=== PATIENT | female | born 1985 | race Caucasian/White ===

== ENCOUNTER 2016-03-29 12:31 | Emergency (ER) | payer MEDICAID ==
[2016-03-29] MEDS ORDERED: NS 1,000 ML IV ONE (13:28)
[2016-03-29] MEDS ORDERED: ACETAMINOPHEN 325 MG TAB PO ONE (13:30)
--- NOTE | 2016-03-29 13:32 | UCPHY ---
H & P Patient Type: Established Chief Complaint Nursing Narrative: COUGH AND CONGESTION STARTED YESTERDAY WITH BURNING SENSATION IN THROAT AND CHEST, INCREASED FATIGUE, FEVER HIGH OF 101F Source: Patient Exam Limitations: No limitations - Personal History LMP (Females 10-55): Now - Medical/Surgical History Hx Asthma: No Hx Chronic Respiratory Disease: No Hx Diabetes: No Hx Cardiac Disease: No Hx Renal Disease: No Hx Cirrhosis: No Hx Alcoholism: No Hx HIV/AIDS: No Hx Splenectomy or Spleen Trauma: No Other PMH: back pain - Family History Significant Family History: No pertinent family hx - Social History Smoking Status: Former smoker Time Seen by Provider: 03/29/16 12:49 HPI/ROS: CHIEF COMPLAINT: cough HISTORY OF PRESENT ILLNESS: 30-year-old female presents complaining of a cough , fever and body aches that started yesterday. Patient reports cough started as dry and today it is productive, she is coughing up yellow sputum. Patient denies sore throat, ear pain. She reports mild nasal congestion. Patient states she stopped smoking 1 month ago. She had a temperature of 101degrees yesterday. She states she feels very dehydrated and tired and is requesting IV fluids. Patient denies chest pain, shortness of breath. REVIEW OF SYSTEMS: A comprehensive 10 point review of systems is otherwise negative aside from elements mentioned in the history of present illness. (Pat Galaviz) - Physical Exam Exam: General: Alert, nontoxic. ENT: Tympanic membranes clear, external auditory canal, external ear and surrounding soft tissue including over the mastoid unremarkable. Nasopharynx is not injected, there is no rhinorrhea. Oropharynx with mild erythema, no edema. There is no exudate. No asymmetry. The uvula is midline. No elevation of tongue. There is no hoarseness. No drooling, patient has good control of their oral secretions. No trismus. No stridor. Cardiac: Regular rate and rhythm. Respiratory: Lungs clear to auscultation bilaterally. Neurological: no meningismus. Skin: No rashes. (Pat Galaviz) Constitutional: Initial Vital Signs Temperature (C) 36.6 C 03/29/16 12:40 Heart Rate 65 03/29/16 12:40 Respiratory Rate 18 03/29/16 12:40 Blood Pressure 105/42 L 03/29/16 12:40 O2 Sat (%) 98 03/29/16 12:40 O2 Delivery Mode Room Air Allergies/Adverse Reactions: diphenhydramine HCl [From Benadryl] Allergy (Verified 03/29/16 12:40) Home Medications: Medication Instructions Recorded Albuterol Sulfate [PROVENTIL HFA] 6.7 gm IH Q4-6PRN PRN #1 hfa.aer.ad 03/29/16 Benzonatate [Tessalon Pearles (RX)] 100 mg PO Q8 PRN #15 cap 03/29/16 Fluticasone Nasal [Flonase Nasal 1 sprays NASAL BID #1 mdi 03/29/16 Chadron (RX)] Medical Decision Making - Diagnostics Imaging: Chest x-ray independently reviewed by me- Impression: Mild perihilar bronchitis without a focal infiltrate, and no substantial change from March 02, 2016. Dictated By: Jian Anne MD (Pat Galaviz) ED Course/Re-evaluation: Influenza was negative, patient was given 650 mg of Tylenol p.o. she requested an IV with a liter of fluid as she states she feels very dehydrated. Chest x-ray obtained showing a mild perihilar bronchitis. Room air oxygen saturations are 98%, patient is afebrile. I have encouraged continued smoking cessation. She is discharged with a prescription for an albuterol inhaler, Flonase. She is to return for worsening symptoms. Patient is comfortable with this plan. (Pat Galaviz) Differential Diagnosis: Diagnosis considered but not limited to viral syndrome, bronchitis, pneumonia, influenza (Pat Galaviz) Other Provider: The patient was evaluated and managed by the nurse practitioner, Pat Galaviz. My co-signature indicates that I have reviewed this chart and I agree with the findings and plan of care as documented. I am the secondary supervising physician. (Meghan Shukla) - Data Points Medications Given: Discontinued Medications Acetaminophen (Tylenol) 650 mg PO EDNOW ONE Stop: 03/29/16 13:31 Last Admin: 03/29/16 13:35 Dose: 650 mg Sodium Chloride (Ns) 1,000 mls @ 0 mls/hr IV ONCE ONE PRN Reason: Wide Open Stop: 03/29/16 13:29 Last Admin: 03/29/16 13:49 Dose: 1,000 mls Departure - Departure Disposition: Home, Routine, Self-Care Clinical Impression: Viral syndrome Condition: Good Instructions: Viral Syndrome (ED) Additional Instructions: Take over the counter Tylenol and ibuprofen as instructed. Rest, drink plenty of fluids. Use a saline nasal rinse, humidifier at night, hot steam showers. Use albuterol inhaler, 2 puffs every 4-6 hours as needed for coughing. Use 1 spray of Flonase in each nostril twice daily. Return to the ED for difficulty breathing, chest pain, other concerns. Referrals: NONE *PRIMARY CARE P,. [Primary Care Provider] - As per Instructions Prescriptions: Fluticasone Nasal [Flonase Nasal Chadron (RX)] 1 sprays NASAL BID #1 mdi Albuterol Sulfate [PROVENTIL HFA] 6.7 gm IH Q4-6PRN PRN #1 hfa.aer.ad PRN Reason: Cough, Mild Benzonatate [Tessalon Pearles (RX)] 100 mg PO Q8 PRN #15 cap PRN Reason: Cough, Moderate - PQRS PQRS Measurement: chelsie (Pat Galaviz)
--- NOTE | 2016-03-29 13:51 | DX ---
Chest, PA and Lateral Upright Views March 29, 2016 at 1:35 p.m. Clinical History: 30-year-old female with a cough, fever, and generalized malaise for two days. The p atient has a prior history of tobacco use and bronchitis. Comparison Study: Chest, dated March 02, 2016. Findings: The cardiac and mediastinal silhouettes are normal in size. There is some mild central leatha hilar bronchial thickening, which is unchanged. There is no focal alveolar consolidation, pleural eff usion, peripheral interstitial edema, or pneumothorax. The trachea is midline. The osseous structures are age-appropriate. There are some minor degenerative changes of the midthoracic spine with small v entral traction spurs. Impression: Mild perihilar bronchitis without a focal infiltrate, and no substantial change from Dece mb2015.
[2016-03-29 14:33] VITALS: BP 95/65; PULSE 82; RESP 16; TEMP 98.4; O2SAT 97
== END 2016-03-29 14:33 | disposition home or self-care (01) ==
LOC: CED 12:31
DX: B34.9 Viral infection, unspecified (principal); Z87.891 Personal history of nicotine dependence
CPT/HCPCS: 71020-PO; 87400-PO; 96360-PO; 99214-PO; G0463-PO

== ENCOUNTER 2016-07-06 20:00 | Emergency (ER) | payer MEDICAID ==
[2016-07-06] MEDS ORDERED: KETOROLAC 30 MG/1 ML SDV IVP ONE (20:39)
[2016-07-06] MEDS ORDERED: NS 1,000 ML IV ONE ×2 (20:39→21:39)
[2016-07-06] MEDS ORDERED: METOCLOPRAMIDE 10 MG/2 ML VIAL IVP ONE (20:39)
[2016-07-06] MEDS ORDERED: HYDROmorphONE/DILAUDID 1 MG/ML SYR IVP ONE (20:39)
--- NOTE | 2016-07-06 20:41 | UCPHY ---
H & P Patient Type: Established Chief Complaint Nursing Narrative: Migraine since this am, nausea. Time Seen by Provider: 07/06/16 20:33 HPI/ROS: CHIEF COMPLAINT: Migraine HISTORY OF PRESENT ILLNESS: The patient is a 30-year-old female who presents to the Urgent Care complaining of a migraine. She states that it is typical of her migraines which she has fairly infrequently. She does not seen a neurologist and does not have a primary care physician. She does not typically take any medication but simply wait for them to go away. She states that over the last 1 last 3 days. She has not had any sinus congestion. No fevers. No sore throat, no neck pain. Some nausea vomiting which she states is typical. Mild photophobia. No tinnitus. She denies risk of . REVIEW OF SYSTEMS: Constitutional: denies: chills, fever, recent illness, recent injury EENTM: denies: blurred vision, double vision, nose congestion Respiratory: denies: cough, shortness of breath Cardiac: denies: chest pain, irregular heart rate, lightheadedness, palpitations Gastrointestinal/Abdominal: denies: abdominal pain, diarrhea, nausea, vomiting, blood streaked stools Genitourinary: denies: dysuria, frequency, hematuria, pain Musculoskeletal: denies: joint pain, muscle pain Skin: denies: lesions, rash, jaundice, bruising Neurological: See HPI denies: numbness, paresthesia, tingling, dizziness, weakness Hematologic/Lymphatic: denies: blood clots, easy bleeding, easy bruising Immunologic/allergic: denies: HIV/AIDS, transplant EXAM: GENERAL: Well-appearing, well-nourished and in no acute distress. HEAD: Atraumatic, normocephalic. EYES: Pupils equal round and reactive to light, extraocular movements intact, sclera anicteric, conjunctiva are normal. ENT: TMs normal, nares patent, oropharynx clear without exudates. Moist mucous membranes. NECK: Normal range of motion, supple without lymphadenopathy or JVD. LUNGS: Breath sounds clear to auscultation bilaterally and equal. No wheezes rales or rhonchi. HEART: Regular rate and rhythm without murmurs, rubs or gallops. ABDOMEN: Soft, nontender, normoactive bowel sounds. No guarding, no rebound. No masses appreciated. BACK: No CVA tenderness, no spinal tenderness, step-offs or deformities EXTREMITIES: Normal range of motion, no pitting or edema. No clubbing or cyanosis. NEUROLOGICAL: Cranial nerves II through XII grossly intact. Normal speech, normal gait. 5/5 strength, normal movement in all extremities, normal sensation PSYCH: Normal mood, normal affect. SKIN: Warm, dry, normal turgor, no visible rashes or lesions. Source: Patient Exam Limitations: No limitations - Personal History LMP (Females 10-55): 1-7 Days Ago Current Tetanus/Diphtheria Vaccine: Yes Current Tetanus Diphtheria and Acellular Pertussis (TDAP): Yes Tetanus Vaccine Date: 2011 - Medical/Surgical History Hx Asthma: No Hx Chronic Respiratory Disease: No Hx Diabetes: No Hx Cardiac Disease: No Hx Renal Disease: No Hx Cirrhosis: No Hx Alcoholism: No Hx HIV/AIDS: No Hx Splenectomy or Spleen Trauma: No Other PMH: back pain, migraines. - Family History Significant Family History: No pertinent family hx - Social History Smoking Status: Former smoker Alcohol Use: Sober Drug Use: None Constitutional: Initial Vital Signs Temperature (C) 37.3 C 07/06/16 20:09 Heart Rate 102 H 07/06/16 20:09 Respiratory Rate 18 07/06/16 20:09 Blood Pressure 97/59 L 07/06/16 20:09 O2 Sat (%) 98 07/06/16 20:09 O2 Delivery Mode Room Air Allergies/Adverse Reactions: diphenhydramine HCl [From Benadryl] Allergy (Severe, Verified 07/06/16 20:13) Other-Enter Comments Home Medications: Medication Instructions Recorded Metoclopramide [Reglan 10 mg tab 10 mg PO BID PRN #10 tab 07/06/16 (RX)] Medical Decision Making ED Course/Re-evaluation: 9:40 p.m. the patient is feeling much better. She states her headache is gone. She is sleeping. She would like to sleep a little longer. She is slightly tachycardic. I will treat her with more IV fluids and observe. 10:40 p.m. the patient is feeling completely better. 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 She is eager to go home. She declines further workup or testing at this time. We discussed indications for returning. Differential Diagnosis: Partial list of the Differential diagnosis considered include but were not limited to; migraine, tension headache, muscle strain and although unlikely based on the history and physical exam, I also considered meningitis, intracranial injury, tumor, stroke. I discussed these differential diagnoses and the plan with the patient as well as the usual and expected course. The patient understands that the diagnosis is provisional and that in medicine we are not always correct and that further workup is often warranted. Usual and customary warnings were given. All of the patient's questions were answered. The patient was instructed to return to the emergency department should the symptoms at all worsen or return, otherwise to followup with the physician as we discussed. - Data Points Medications Given: Discontinued Medications Hydromorphone HCl (Dilaudid) 0.5 mg IVP EDNOW ONE Stop: 07/06/16 20:40 Last Admin: 07/06/16 21:01 Dose: 0.5 mg Sodium Chloride (Ns) 1,000 mls @ 0 mls/hr IV ONCE ONE PRN Reason: Wide Open Stop: 07/06/16 20:40 Last Admin: 07/06/16 20:55 Dose: 1,000 mls Sodium Chloride (Ns) 1,000 mls @ 0 mls/hr IV ONCE ONE PRN Reason: Wide Open Stop: 07/06/16 21:40 Last Admin: 07/06/16 21:45 Dose: 1,000 mls Ketorolac Tromethamine (Toradol) 30 mg IVP EDNOW ONE Stop: 07/06/16 20:40 Last Admin: 07/06/16 20:58 Dose: 30 mg Metoclopramide HCl (Reglan Injection) 10 mg IVP EDNOW ONE Stop: 07/06/16 20:40 Last Admin: 07/06/16 20:56 Dose: 10 mg Departure - Departure Disposition: Home, Routine, Self-Care Clinical Impression: Migraine Qualifiers: Migraine type: without aura Status migrainosus presence: without status migrainosus Intractability: not intractable Qualified Code(s): G43.009 - Migraine without aura, not intractable, without status migrainosus Condition: Fair Instructions: Migraine Headache (ED) Referrals: NONE *PRIMARY CARE P,. [Primary Care Provider] - As per Instructions Jian Arita DO [Medical Doctor] - As per Instructions Prescriptions: Metoclopramide [Reglan 10 mg tab (RX)] 10 mg PO BID PRN #10 tab PRN Reason: Headache - PQRS PQRS Measurement: Not applicable
[2016-07-06 21:18] VITALS: RESP 16
[2016-07-06 22:15] VITALS: BP 100/41; PULSE 103; TEMP 99.7; O2SAT 95
== END 2016-07-06 22:39 | disposition home or self-care (01) ==
LOC: CED 20:00
DX: G43.909 Migraine, unspecified, not intractable, without status migrainosus (principal); Z87.891 Personal history of nicotine dependence
CPT/HCPCS: 96361-PO; 96374-PO; 96375-PO; G0463-PO; J1170; J1885; J2765

== ENCOUNTER 2016-10-24 18:51 | Emergency (ER) | payer MEDICAID ==
[2016-10-24 19:12] VITALS: TEMP 98.2
[2016-10-24] MEDS ORDERED: IBUPROFEN 600 MG TAB PO ONE ×2 (19:15→19:20)
--- NOTE | 2016-10-24 19:19 | EDPHY ---
H & P Time Seen by Provider: 10/24/16 19:01 HPI/ROS: 31-year-old female presents complaining of neck pain, she states her neck and upper back muscle has been bothering her for several days possibly greater than 1 week. 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 She states she has been told she has multiple bulging disc in her neck and she feels that this pain is similar to prior disc pain she has had. no fevers or chills, no trauma no numbness or tingling, no loss of bowel or bladder control denies IV drug use Review of systems As per HPI General no fever no chills no weakness HEENT no eye pain no eye discharge. No eye redness, no sore throat Respiratory no cough, no shortness of breath Cardiac no chest pain, no peripheral edema GI no abdominal pain, no diarrhea, no constipation, no nausea, no vomiting no flank pain, no hematuria, no dysuria Musculoskeletal positive myalgias, no joint pain Heme no easy bruising, no easy bleeding Endo no polyuria, no polydipsia Skin no rashes, no pruritus Neuro no syncope, no dizziness, no headaches Psych is no suicidal ideation, no homicidal ideation Past Medical/Surgical History: Migraine chronic back pain Social History: alcohol socially, denies drug use Smoking Status: Current every day smoker Physical Exam: 31-year-old female alert and oriented moderate distress secondary to neck pain and difficulty turning her head to the left HEENT atraumatic normocephalic, extraocular muscles intact, anicteric Oropharynx negative for erythema negative exudate, tolerating her own secretions Neck supple no meningismus, no lymphadenopathy, paracervical tenderness to palpation with spasm no focal bony tenderness Lungs clear to auscultation bilaterally Heart regular rate and rhythm without murmur rub or gallop Abdomen nondistended normoactive bowel sounds soft nontender Back no CVA tenderness, no step-offs, no spinal tenderness Extremities no cyanosis clubbing or edema Neuro alert and oriented, no focal deficits Constitutional: Initial Vital Signs Temperature (C) 36.8 C 10/24/16 19:08 Heart Rate 79 10/24/16 19:08 Respiratory Rate 16 10/24/16 19:08 Blood Pressure 124/80 H 10/24/16 19:08 O2 Sat (%) 96 10/24/16 19:08 O2 Delivery Mode Room Air Allergies/Adverse Reactions: diphenhydramine HCl [From Benadryl] Allergy (Severe, Verified 10/24/16 19:06) Other-Enter Comments Home Medications: Medication Instructions Recorded Cyclobenzaprine [Flexeril 10 MG 10 mg PO TID PRN #15 tab 10/24/16 (*)] Hydrocodone/APAP 5/325 [[place] 1 - 2 tab PO Q6H PRN #8 tab 10/24/16 5/325 (*)] methylPREDNISolone [Medrol Dose 1 each PO AD #1 ea 10/24/16 Byron] Medical Decision Making ED Course/Re-evaluation: patient seen and evaluated for neck pain differential diagnosis considered neck muscle spasm, torticollis, meningitis, cervical disc disease labs sent to rule out infection or significant inflammation WBC 10, sedimentation rate normal patient given morphine 4 mg IV push, ibuprofen, prednisone 60 p.o. impression neck muscle spasm cannot rule out cervical disc disease plan cyclobenzaprine #15 norco #8 medrol dosepack pcp spine [place] - Data Points Laboratory Results: Laboratory Results 10/24/16 19:45 10/24/16 19:45 10/24/16 10/24/16 19:45 19:45 WBC 10.96 10^3/uL H 10^3/uL (3.80-9.50) RBC 4.58 10^6/uL 10^6/uL (4.18-5.33) Hgb 14.3 g/dL g/dL (12.6-16.3) Hct 39.7 % % (38.0-47.0) MCV 86.7 fL fL (81.5-99.8) MCH 31.2 pg pg (27.9-34.1) MCHC 36.0 g/dL g/dL (32.4-36.7) RDW 12.0 % % (11.5-15.2) Plt Count 220 10^3/uL 10^3/uL (150-400) MPV 9.9 fL fL (8.7-11.7) Neut % (Auto) 58.5 % % (39.3-74.2) Lymph % (Auto) 30.6 % % (15.0-45.0) [place] % (Auto) 7.8 % % (4.5-13.0) Eos % (Auto) 2.6 % % (0.6-7.6) Baso % (Auto) 0.3 % % (0.3-1.7) Nucleat RBC Rel Count 0.0 % % (0.0-0.2) Absolute Neuts (auto) 6.43 10^3/uL 10^3/uL (1.70-6.50) Absolute Lymphs (auto) 3.35 10^3/uL H 10^3/uL (1.00-3.00) Absolute Monos (auto) 0.85 10^3/uL H 10^3/uL (0.30-0.80) Absolute Eos (auto) 0.28 10^3/uL 10^3/uL (0.03-0.40) Absolute Basos (auto) 0.03 10^3/uL 10^3/uL (0.02-0.10) Absolute Nucleated RBC 0.00 10^3/uL 10^3/uL (0-0.01) Immature Gran % 0.2 % % (0.0-1.1) Immature Gran # 0.02 10^3/uL 10^3/uL (0.00-0.10) ESR 7 MM/HR MM/HR (0-20) Sodium 138 mEq/L mEq/L (134-144) Potassium 3.9 mEq/L mEq/L (3.5-5.2) Chloride 103 mEq/L mEq/L (97-110) Carbon Dioxide 21 mEq/l L mEq/l (22-31) Anion Gap 14 mEq/L mEq/L (8-16) BUN 19 mg/dL mg/dL (7-23) Creatinine 0.8 mg/dL mg/dL (0.6-1.0) Estimated GFR > 60 Glucose 77 mg/dL mg/dL (70-100) Calcium 9.4 mg/dL mg/dL (8.5-10.4) Medications Given: Discontinued Medications Hydrocodone Bitart/Acetaminophen ([place] 5/325mg Prepack#6) 1 btl TAKEHOME EDNOW ONE Stop: 10/24/16 20:18 Last Admin: 10/24/16 20:43 Dose: 1 btl Cyclobenzaprine HCl (Flexeril) 10 mg PO EDNOW ONE Stop: 10/24/16 19:29 Last Admin: 10/24/16 19:33 Dose: 10 mg Cyclobenzaprine HCl (Flexeril 10 Mg Prepack#3) 1 btl TAKEHOME EDNOW ONE Stop: 10/24/16 20:19 Last Admin: 10/24/16 20:42 Dose: 1 btl Ibuprofen (Motrin) 600 mg PO EDNOW ONE Stop: 10/24/16 19:21 Last Admin: 10/24/16 19:21 Dose: 600 mg Morphine Sulfate (Morphine) 4 mg IVP ONCE ONE Stop: 10/24/16 19:51 Last Admin: 10/24/16 19:56 Dose: 4 mg Ondansetron HCl (Zofran Odt) 4 mg PO EDNOW ONE Stop: 10/24/16 19:21 Last Admin: 10/24/16 19:32 Dose: 4 mg Prednisone (Prednisone) 60 mg PO EDNOW ONE Stop: 10/24/16 19:29 Last Admin: 10/24/16 19:32 Dose: 60 mg Departure - Departure Disposition: Home, Routine, Self-Care Clinical Impression: Muscle spasms of neck, Cervical disc disease Condition: Good Instructions: Cervical Disc Herniation (ED), Muscle Spasm (ED) Referrals: NONE *PRIMARY CARE P,. [Primary Care Provider] - As per Instructions Stand Alone Forms: Work Excuse Prescriptions: Cyclobenzaprine [Flexeril 10 MG (*)] 10 mg PO TID PRN #15 tab PRN Reason: Spasms Hydrocodone/APAP 5/325 [[place] 5/325 (*)] 1 - 2 tab PO Q6H PRN #8 tab PRN Reason: Pain, Severe methylPREDNISolone [Medrol Dose Byron] 1 each PO AD #1 ea
[2016-10-24] MEDS ORDERED: ONDANSETRON DISINTEGRATING 4 MG TAB PO ONE (19:20)
[2016-10-24] MEDS ORDERED: CYCLOBENZAPRINE 10 MG TAB PO ONE (19:28)
[2016-10-24] MEDS ORDERED: predniSONE 20 MG TAB PO ONE (19:28)
[2016-10-24 19:54] LABS: % IMMATURE GRANULYOCYTES 0.2 % (0.0-1.1); ABSOLUTE IMMATURE GRANULOCYTES 0.02 10^3/uL (0.00-0.10); ADD DIFF? NO; ADD MORPH? NO; ADD SCAN? NO; ATYPICAL LYMPHOCYTE FLAG 10 (0-99); FRAGMENT RBC FLAG 0 (0-99); HEMATOCRIT 39.7 % (38.0-47.0); HEMOGLOBIN 14.3 g/dL (12.6-16.3); LEFT SHIFT FLG 0 (0-99); LIPEMIA HEMOLYSIS FLAG 90 (0-99); MEAN CELL HEMOGLOBIN 31.2 pg (27.9-34.1); MEAN CELL VOLUME 86.7 fL (81.5-99.8); MEAN PLATELET VOLUME 9.9 fL (8.7-11.7); PLATELET CLUMPS FLAG 0 (0-99); PLATELET COUNT 220 10^3/uL (150-400); RED BLOOD CELL COUNT 4.58 10^6/uL (4.18-5.33)
[2016-10-24 20:06] LABS: ANION GAP 14 mEq/L (8-16); CALCIUM 9.4 mg/dL (8.5-10.4); CARBON DIOXIDE 21 mEq/l (22-31); CHLORIDE 103 mEq/L (97-110); CREATININE 0.8 mg/dL (0.6-1.0); GLOMERULAR FILTRATION RATE > 60; GLUCOSE 77 mg/dL (70-100); POTASSIUM 3.9 mEq/L (3.5-5.2); SODIUM 138 mEq/L (134-144)
[2016-10-24 20:10] LABS: SEDIMENTATION RATE 7 MM/HR (0-20)
[2016-10-24] MEDS ORDERED: HYDROCOD/APAP 5/325 PREPACK#6 BTL TAKEHOME ONE (20:17)
[2016-10-24] MEDS ORDERED: CYCLOBENZAPRINE 10MG PREPACK#3 BTL TAKEHOME ONE (20:18)
[2016-10-24 21:21] VITALS: BP 124/76; PULSE 72; RESP 14; O2SAT 95
== END 2016-10-24 21:10 | disposition home or self-care (01) ==
LOC: CED 18:51
DX: M50.30 Other cervical disc degeneration, unspecified cervical region (principal); M62.838 Other muscle spasm; F17.200 Nicotine dependence, unspecified, uncomplicated
CPT/HCPCS: 80048-PO; 85025-PO; 85652-PO; 96374

== ENCOUNTER 2016-10-25 13:39 | Emergency (ER) | payer MEDICAID ==
[2016-10-25 13:54] VITALS: BP 122/73; PULSE 86; RESP 16; TEMP 98.4; O2SAT 95
--- NOTE | 2016-10-25 14:29 | EDPHY ---
H & P Time Seen by Provider: 10/25/16 13:44 HPI/ROS: This pt. returns with neck pain after being seen yesterday for neck pain without antecedent injury. 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 Yesterday she reached forward with her arm still abrupt sharp pain in her neck extending down her back. The patient felt there was redness and swelling as well in her neck the concern for an infection and labs drawn yesterday were normal. There is some concern of a possible disc herniation causing her symptoms so she was started on steroids and reports compliance with his meds. She complains of sedation from the Flexeril only took 1 dose of it. She did take some Vicodin earlier today with some relief. Currently the pain is 3/10 but she is worried about potential structural abnormalities in her neck and requests a neck x-ray. She states that the pain feels different than pain she has had with muscle strain in the past. ROS: No fevers. No other constitutional symptoms HEENT: No recent head trauma. Musculoskeletal: She reports feeling of relief when she holds her head with her hands and inquires about a neck brace. Pulmonary: No complaints Neuro: No focal numbness tingling weakness. No bowel or bladder incontinence. 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 Occasional marijuana. No IV drug use. Occasional alcohol. Smoking Status: Current every day smoker Physical Exam: Physical Exam Vital signs are normal. General: No acute distress HEENT: Atraumatic. Eyes: Pupils equal and react to light. Extraocular motions are intact. Neck: No significant midline tenderness. She has right paraspinous muscular tenderness extends into the right trapezius some spasm of the trapezius extends into the rhomboid region. She has limited range of motion for flexion due to increasing pain without maneuver and with extension. She has less pain with flexion toward the affected side and more pain with lateral flexion away from the affected side. No anterior neck tenderness. No goiter. No erythema warmth to touch her swelling is evident. Lungs: Clear to auscultation bilaterally. No respiratory distress. Cardiac: Regular rate and rhythm with no murmur gallop rubBrisk capillary refill is intact throughout. Skin: No rash or pallor. Neuro: GCS 15. Patient maintains normal light touch sensory exam bilateral upper and lower extremities. She maintains 2+ symmetric biceps, triceps, brachioradialis and patellar DTRs bilaterally. She maintains 5/5 strength bilateral upper extremities throughout including hand intrinsics initial differential diagnosis: Muscle strain, disc herniation, congenital bony abnormality Constitutional: Initial Vital Signs Temperature (C) 36.9 C 10/25/16 13:48 Heart Rate 86 10/25/16 13:48 Respiratory Rate 16 10/25/16 13:48 Blood Pressure 122/73 H 10/25/16 13:48 O2 Sat (%) 95 10/25/16 13:48 O2 Delivery Mode Room Air Allergies/Adverse Reactions: diphenhydramine HCl [From Benadryl] Allergy (Severe, Verified 10/25/16 13:50) Other-Enter Comments Home Medications: Medication Instructions Recorded Cyclobenzaprine [Flexeril 10 MG 10/25/16 (*)] Hydrocodone/APAP 5/325 [[place] 10/25/16 5/325 (*)] Methocarbamol [Robaxin 750 mg (*)] 750 - 1,500 mg PO QID PRN #30 tab 10/25/16 methylPREDNISolone [Medrol Dose 10/25/16 Byron] MDM/Departure - MDM Diagnostics: cervical spine x-ray: Normal by my interpretation. Imaging Results: Imaging Impressions Cervical Spine X-Ray 10/25/16 13:46 Impression: Normal cervical spine series. If there is continued concern for radiculopathy, consider MRI for further evaluation. Imaging: I viewed and interpreted images myself ED Course/Re-evaluation: I reviewed the patient's cervical spine x-ray with her and reassured her that I find evidence of radiculopathy on exam currently or other concerning findings. Encouraged her to continue her current meds with exception of upon her request changing to a less sedating muscle relaxant -prescribed methocarbamol. Also encouraged her to use Tylenol, anti-inflammatory and muscle relaxant prior to the opiate she was prescribed encouraging not to use that unless she is unable sleep Due to pain instructed her on some neck stretches that may be helpful. She will follow up with primary care physician for any ongoing symptoms. - Depart Disposition: Home, Routine, Self-Care Clinical Impression: Neck muscle strain Qualifiers: Encounter type: initial encounter Qualified Code(s): S16.1XXA - Strain of muscle, fascia and tendon at neck level, initial encounter Condition: Good Instructions: Cervical Strain (ED) Additional Instructions: Diagnosis: Neck muscle strain plan continue your anti-inflammatories. gentle stretches for 15-20 minutes before directions as described after hot shower bath in the morning and anti-inflammatory dose. Tylenol in addition Methocarbamol muscle relaxant in addition if needed. Take here opiate pain medication if you're unable to sleep despite the above medications. Avoid opiate of possible. Return for any significant worsening despite the treatment plan Prescriptions: Methocarbamol [Robaxin 750 mg (*)] 750 - 1,500 mg PO QID PRN #30 tab PRN Reason: Muscle Spasms Referrals: NONE *PRIMARY CARE P,. [Primary Care Provider] - As per Instructions
== END 2016-10-25 14:34 | disposition home or self-care (01) ==
LOC: CED 13:39
DX: S16.1XXA Strain of muscle, fascia and tendon at neck level, initial encounter (principal); F17.200 Nicotine dependence, unspecified, uncomplicated; X58.XXXA Exposure to other specified factors, initial encounter
CPT/HCPCS: 72050-PO

== ENCOUNTER 2016-12-11 14:41 | Emergency (ER) | payer MEDICAID ==
--- NOTE | 2016-12-11 14:49 | EDPHY ---
H & P HPI/ROS: HPI CHIEF COMPLAINT: Abdominal pain HISTORY OF PRESENT ILLNESS: This patient very pleasant 31-year-old female, significant past medical history for migraine headaches, presents emergency room with abdominal pain. Started earlier this morning she describes as low crampy across her abdomen. Periumbilical right lower quadrant left lower quadrant suprapubic. It does wrap around her hips. She denies any urinary symptoms. Denies vaginal discharge. Denies bleeding. Denies being . Denies fever. She did have 1 episode of watery diarrhea earlier. No vomiting. Denies chest pain or shortness of breath. Additionally patient is requesting STD check. She states that she has been having unprotected intercourse over the past few months. She does not have any vaginal discharge or urethral symptoms. She does state she offer suffers from yeast infections she treated herself. She additionally would like a pelvic exam performed. Past Medical History: Migraine headaches Past Surgical History: No recent surgery Social History: Occasional alcohol use, occasional tobacco. Family History: No significant family history. ROS REVIEW OF SYSTEMS: A comprehensive 10 point review of systems is otherwise negative aside from elements mentioned in the history of present illness. Exam Constitutional appears well nontoxic, triage nursing summary reviewed, vital signs reviewed, awake/alert. Eyes normal conjunctivae and sclera, EOMI, PERRLA. HENT normal inspection, atraumatic, moist mucus membranes, no epistaxis, neck supple/ no meningismus, no raccoon eyes. Respiratory clear to auscultation bilaterally, normal breath sounds, no respiratory distress, no wheezing. Cardiovascular rate normal, regular rhythm, no murmur, no edema, distal pulses normal. Gastrointestinal soft, mild tenderness palpation periumbilical suprapubic lower abdomen, no rebound, no guarding, normal bowel sounds, no distension, no pulsatile mass. Genitourinary no CVA tenderness. Musculoskeletal no midline vertebral tenderness, full range of motion, no calf swelling, no tenderness of extremities, no meningismus, good pulses, neurovascularly intact. Skin pink, warm, & dry, no rash, skin atraumatic. Neurologic awake, alert and oriented x 3, AAOx3, moves all 4 extremities equally, motor intact, sensory intact, CN II-XII intact, normal cerebellar, normal vision, normal speech. Psychiatric normal mood/affect. Heme/Lymph/Immune no lymphadenopathy. Differential diagnosis includes but is not limited to and in no particular order : Bowel obstruction, appendicitis, gallbladder disease, diverticulitis, colitis , enteritis, perforated viscus, gastritis, GERD, esophagitis, urinary tract infection, pyelonephritis, kidney stones, vaginitis, yeast infection, STI. Medical Decision Making: Plan for this patient IV establishment IV fluid bolus , Toradol for pain control. CT scan abdomen pelvis to rule out acute appendicitis. Check blood work. Pelvic exam. Send dirty catch urine and clean catch urine. Re-evaluate. Re-evaluation: CT scan of the abdomen and pelvis with IV contrast for right lower quadrant periumbilical pain The results of the study are negative for acute appendicitis constipation. No other signs of acute inflammatory process. No evidence of sitting free fluid in the pelvis or TOA. The study was read by Dr. martinez. I viewed the images myself on the PACS system. 1714: Pelvic exam performed. Genna CAMARILLO at bedside as contracting officer. No significant lesions on external exam. Os is closed. No CMT. No adnexal fullness or mass. No foul smell. No significant discharge on exam. Unremarkable pelvic exam. Swab sent for BV, wet prep, yeast. We were able to obtain a dirty catch urine for STI. 1716: I did go over extensively with this patient about her blood work and CT results. She understands her CT scan does not show any acute inflammatory process. Normal appendix. However significant constipation. Recommend MiraLax for 2 days. Lots of water. Foods and vegetables. Increase her fiber. This may be the cause of her abdominal cramping. As for pelvic exam unremarkable. Studies are pending. She understands call in 24 hours about her further pending studies gonorrhea and chlamydia. Urinalysis reviewed. Vital signs reviewed. She is stable abdomen is soft feels better after IV fluids and Toradol. Not vomiting. Agreeable on discharge planning. Return precautions given. 1803: Patient to follow-up her bacterial vaginosis testing as this goes to [facility] for run. Yeast goes there is well. Also to call back for STI. I do feel comfortable allowing her to go home. She understands return emergency room if develops worsening abdominal pain fever vomiting. Source: Patient - Personal History Tetanus Vaccine Date: 2011 - Medical/Surgical History Hx Asthma: No Hx Chronic Respiratory Disease: No Hx Diabetes: No Hx Cardiac Disease: No Hx Renal Disease: No Hx Cirrhosis: No Hx Alcoholism: No Hx HIV/AIDS: No Hx Splenectomy or Spleen Trauma: No Other PMH: back pain, migraines,8 bulging discs,scoliosis,dislocated SI joint - Social History Smoking Status: Current every day smoker Constitutional: Initial Vital Signs Temperature (C) 36.5 C 12/11/16 15:01 Heart Rate 103 H 12/11/16 15:01 Respiratory Rate 18 12/11/16 15:01 Blood Pressure 109/69 12/11/16 15:01 O2 Sat (%) 98 12/11/16 15:01 O2 Delivery Mode Room Air Allergies/Adverse Reactions: diphenhydramine HCl [From Benadryl] Allergy (Severe, Verified 12/11/16 15:06) Other-Enter Comments Home Medications: Medication Instructions Recorded Polyethylene Glycol 3350 [Miralax 17 gm PO DAILY #2 pkt 12/11/16 17 gm (*)] Medical Decision Making - Diagnostics Imaging Results: Imaging Impressions Abdomen CT 12/11/16 14:56 Impression: 1. Mild constipation. 2. No CT evidence of appendicitis, abscess or bowel obstruction. 3. No adnexal masses or urinary tract obstruction. Findings and recommendations discussed with Emergency Department physician, Brian Ruth MD, at 16:02 hour, 12/11/2016. Final report concurs with initial preliminary interpretation. - Data Points Laboratory Results: Laboratory Results 12/11/16 15:13 12/11/16 15:13 12/11/16 12/11/16 12/11/16 Unknown 17:15 17:10 WBC RBC Hgb Hct MCV MCH MCHC RDW Plt Count MPV Neut % (Auto) Lymph % (Auto) Lander % (Auto) Eos % (Auto) Baso % (Auto) Nucleat RBC Rel Count Absolute Neuts (auto) Absolute Lymphs (auto) Absolute Monos (auto) Absolute Eos (auto) Absolute Basos (auto) Absolute Nucleated RBC Immature Gran % Immature Gran # Sodium Potassium Chloride Carbon Dioxide Anion Gap BUN Creatinine Estimated GFR Glucose Calcium Total Bilirubin Conjugated Bilirubin Unconjugated Bilirubin AST ALT Alkaline Phosphatase Total Protein Albumin Lipase Beta HCG, Qual Urine Color Urine Appearance Urine pH Ur Specific Howell Urine Protein Urine Ketones Urine Blood Urine Nitrate Urine Bilirubin Urine Urobilinogen Ur Leukocyte Esterase Urine Glucose Trichomonas (Wet Prep) Pending Qi species DNA Pending Gardnerella DNA Probe Pending N.gonorrhoeae RNA (TMA) Pending Trichomonas DNA Probe Pending 12/11/16 12/11/16 12/11/16 15:13 15:13 15:13 WBC RBC Hgb Hct MCV MCH MCHC RDW Plt Count MPV Neut % (Auto) Lymph % (Auto) Lander % (Auto) Eos % (Auto) Baso % (Auto) Nucleat RBC Rel Count Absolute Neuts (auto) Absolute Lymphs (auto) Absolute Monos (auto) Absolute Eos (auto) Absolute Basos (auto) Absolute Nucleated RBC Immature Gran % Immature Gran # Sodium 140 mEq/L mEq/L (134-144) Potassium 4.1 mEq/L mEq/L (3.5-5.2) Chloride 102 mEq/L mEq/L (97-110) Carbon Dioxide 24 mEq/l mEq/l (22-31) Anion Gap 14 mEq/L mEq/L (8-16) BUN 9 mg/dL mg/dL (7-23) Creatinine 0.8 mg/dL mg/dL (0.6-1.0) Estimated GFR > 60 Glucose 75 mg/dL mg/dL (70-100) Calcium 9.5 mg/dL mg/dL (8.5-10.4) Total Bilirubin 0.7 mg/dL mg/dL (0.1-1.4) Conjugated Bilirubin 0.4 mg/dL mg/dL (0.0-0.5) Unconjugated Bilirubin 0.3 mg/dL mg/dL (0.0-1.1) AST 16 IU/L IU/L (14-46) ALT 33 IU/L IU/L (9-52) Alkaline Phosphatase 58 IU/L IU/L (38-126) Total Protein 7.4 g/dL g/dL (6.3-8.2) Albumin 4.4 g/dL g/dL (3.5-5.0) Lipase 56 IU/L IU/L (23-300) Beta HCG, Qual NEGATIVE Urine Color YELLOW Urine Appearance CLEAR Urine pH 7.5 (5.0-7.5) Ur Specific Howell 1.015 (1.002-1.030) Urine Protein NEGATIVE (NEGATIVE) Urine Ketones NEGATIVE (NEGATIVE) Urine Blood NEGATIVE (NEGATIVE) Urine Nitrate NEGATIVE (NEGATIVE) Urine Bilirubin NEGATIVE (NEGATIVE) Urine Urobilinogen 0.2 EU EU (0.2-1.0) Ur Leukocyte Esterase NEGATIVE (NEGATIVE) Urine Glucose NEGATIVE (NEGATIVE) Trichomonas (Wet Prep) Qi species DNA Gardnerella DNA Probe N.gonorrhoeae RNA (TMA) Trichomonas DNA Probe 12/11/16 15:13 WBC 12.80 10^3/uL H 10^3/uL (3.80-9.50) RBC 4.70 10^6/uL 10^6/uL (4.18-5.33) Hgb 14.6 g/dL g/dL (12.6-16.3) Hct 40.8 % % (38.0-47.0) MCV 86.8 fL fL (81.5-99.8) MCH 31.1 pg pg (27.9-34.1) MCHC 35.8 g/dL g/dL (32.4-36.7) RDW 11.8 % % (11.5-15.2) Plt Count 270 10^3/uL 10^3/uL (150-400) MPV 9.9 fL fL (8.7-11.7) Neut % (Auto) 69.3 % % (39.3-74.2) Lymph % (Auto) 22.3 % % (15.0-45.0) Lander % (Auto) 7.0 % % (4.5-13.0) Eos % (Auto) 0.6 % % (0.6-7.6) Baso % (Auto) 0.3 % % (0.3-1.7) Nucleat RBC Rel Count 0.0 % % (0.0-0.2) Absolute Neuts (auto) 8.88 10^3/uL H 10^3/uL (1.70-6.50) Absolute Lymphs (auto) 2.85 10^3/uL 10^3/uL (1.00-3.00) Absolute Monos (auto) 0.89 10^3/uL H 10^3/uL (0.30-0.80) Absolute Eos (auto) 0.08 10^3/uL 10^3/uL (0.03-0.40) Absolute Basos (auto) 0.04 10^3/uL 10^3/uL (0.02-0.10) Absolute Nucleated RBC 0.00 10^3/uL 10^3/uL (0-0.01) Immature Gran % 0.5 % % (0.0-1.1) Immature Gran # 0.06 10^3/uL 10^3/uL (0.00-0.10) Sodium Potassium Chloride Carbon Dioxide Anion Gap BUN Creatinine Estimated GFR Glucose Calcium Total Bilirubin Conjugated Bilirubin Unconjugated Bilirubin AST ALT Alkaline Phosphatase Total Protein Albumin Lipase Beta HCG, Qual Urine Color Urine Appearance Urine pH Ur Specific Howell Urine Protein Urine Ketones Urine Blood Urine Nitrate Urine Bilirubin Urine Urobilinogen Ur Leukocyte Esterase Urine Glucose Trichomonas (Wet Prep) Qi species DNA Gardnerella DNA Probe N.gonorrhoeae RNA (TMA) Trichomonas DNA Probe Medications Given: Discontinued Medications Sodium Chloride (Ns) 1,000 mls @ 0 mls/hr IV EDNOW ONE; Wide Open PRN Reason: Protocol Stop: 12/11/16 14:57 Last Admin: 12/11/16 15:19 Dose: 1,000 mls Ketorolac Tromethamine (Toradol) 15 mg IVP EDNOW ONE Stop: 12/11/16 15:42 Last Admin: 12/11/16 15:52 Dose: 15 mg Ondansetron HCl (Zofran) 4 mg IVP EDNOW ONE Stop: 12/11/16 14:57 Last Admin: 12/11/16 15:21 Dose: 4 mg Departure - Departure Disposition: Home, Routine, Self-Care Clinical Impression: Abdominal pain Qualifiers: Abdominal location: generalized Qualified Code(s): R10.84 - Generalized abdominal pain Constipation Qualifiers: Constipation type: unspecified constipation type Qualified Code(s): K59.00 - Constipation, unspecified Condition: Good Instructions: Constipation (ED), High Fiber Diet (ED), Acute Abdominal Pain (ED ) Additional Instructions: 1. Return emergency room if you have worsening abdominal pain fever vomiting. 2. Call in 24 hours about your other test results. Referrals: NONE *PRIMARY CARE P,. [Primary Care Provider] - As per Instructions Stand Alone Forms: Work Excuse Prescriptions: Polyethylene Glycol 3350 [Miralax 17 gm (*)] 17 gm PO DAILY #2 pkt
[2016-12-11] MEDS ORDERED: NS 1,000 ML IV ONE (14:56)
[2016-12-11] MEDS ORDERED: ONDANSETRON 4 MG/2 ML VIAL IVP ONE (14:56)
[2016-12-11 15:20] LABS: % IMMATURE GRANULYOCYTES 0.5 % (0.0-1.1); ABSOLUTE IMMATURE GRANULOCYTES 0.06 10^3/uL (0.00-0.10); ADD DIFF? NO; ADD MORPH? NO; ADD SCAN? NO; ATYPICAL LYMPHOCYTE FLAG 0 (0-99); FRAGMENT RBC FLAG 0 (0-99); HEMATOCRIT 40.8 % (38.0-47.0); HEMOGLOBIN 14.6 g/dL (12.6-16.3); LEFT SHIFT FLG 0 (0-99); LIPEMIA HEMOLYSIS FLAG 90 (0-99); MEAN CELL HEMOGLOBIN 31.1 pg (27.9-34.1); MEAN CELL HEMOGLOBIN CONCENTR. 35.8 g/dL (32.4-36.7); MEAN CELL VOLUME 86.8 fL (81.5-99.8); MEAN PLATELET VOLUME 9.9 fL (8.7-11.7); PLATELET CLUMPS FLAG 0 (0-99); PLATELET COUNT 270 10^3/uL (150-400); RED CELL DISTRIBUTION WIDTH 11.8 % (11.5-15.2)
[2016-12-11 15:22] LABS: COLOR YELLOW; LEUKOCYTE ESTERASE,URINE NEGATIVE (NEGATIVE); NITRITE,URINE NEGATIVE (NEGATIVE); PH,URINE 7.5 (5.0-7.5)
[2016-12-11 15:35] LABS: ALANINE AMINOTRANSFERASE 33 IU/L (9-52); ALBUMIN 4.4 g/dL (3.5-5.0); ALKALINE PHOSPHATASE 58 IU/L (38-126); ANION GAP 14 mEq/L (8-16); ASPARTATE AMINOTRANSFERASE 16 IU/L (14-46); BILIRUBIN,TOTAL 0.7 mg/dL (0.1-1.4); BILIRUBIN-CONJUGATED 0.4 mg/dL (0.0-0.5); BILIRUBIN-UNCONJUGATED 0.3 mg/dL (0.0-1.1); CALCIUM 9.5 mg/dL (8.5-10.4); CARBON DIOXIDE 24 mEq/l (22-31); CHLORIDE 102 mEq/L (97-110); CREATININE 0.8 mg/dL (0.6-1.0); GLOMERULAR FILTRATION RATE > 60; GLUCOSE 75 mg/dL (70-100); POTASSIUM 4.1 mEq/L (3.5-5.2); SODIUM 140 mEq/L (134-144); TOTAL PROTEIN 7.4 g/dL (6.3-8.2)
[2016-12-11] MEDS ORDERED: IOPAMIDOL (ISOVUE-300) 100 ML BTL ONE (15:39)
[2016-12-11] MEDS ORDERED: KETOROLAC 15 MG/1 ML SDV IVP ONE (15:41)
[2016-12-11 16:10] VITALS: O2SAT 96
[2016-12-11 18:07] VITALS: BP 96/51; PULSE 83; RESP 18; TEMP 98.6
[2016-12-14 13:22] LABS: CHLAMYDIA AMPLIFICATION GENPRB NEGATIVE (NEGATIVE)
== END 2016-12-11 17:45 | disposition home or self-care (01) ==
LOC: CED 14:41
DX: K59.00 Constipation, unspecified (principal); E86.9 Volume depletion, unspecified; F17.200 Nicotine dependence, unspecified, uncomplicated
CPT/HCPCS: 74177-PO; 80048-PO; 80076-PO; 81003-PO; 83690-PO; 84703-PO; 85025-PO; 96374; J1885; J2405; Q9967

== ENCOUNTER 2017-01-29 08:32 | Emergency (ER) | payer MEDICAID ==
[2017-01-29 08:47] VITALS: BP 115/63; PULSE 94; RESP 18; TEMP 98.1; O2SAT 97
--- NOTE | 2017-01-29 08:49 | EDPHY ---
H & P Stated Complaint: sore throat started wednesday, fevers Time Seen by Provider: 01/29/17 08:43 HPI/ROS: CHIEF COMPLAINT: Sore throat, fever, body aches HISTORY OF PRESENT ILLNESS: Patient is a 31-year-old healthy female who comes to the emergency department complaining of sore throat, fevers and body aches with a T-max of 101 degrees at home. A she is afebrile here. Her symptoms began on Wednesday. She has lost her voice. She complains and dry cough. She also has body aches. No headache. No neck stiffness. REVIEW OF SYSTEMS: Constitutional: denies: chills, fever, recent illness, recent injury EENTM: See HPI Cardiovascular: Denies : chest pain, irregular heart rate, lightheadedness, palpitations Gastrointestinal/Abdominal: denies: abdominal pain, diarrhea, nausea, vomiting, blood streaked stools Genitourinary: denies: dysuria, frequency, hematuria, pain Musculoskeletal: denies: joint pain, muscle pain Skin: denies: lesions, rash, jaundice, bruising Neurological: denies: headache, numbness, paresthesia, tingling, dizziness, weakness Hematologic/Lymphatic: denies: blood clots, easy bleeding, easy bruising Immunologic/allergic: denies: HIV/AIDS, transplant EXAM: GENERAL: Well-appearing, well-nourished and in no acute distress. HEAD: Atraumatic, normocephalic. EYES: Pupils equal round and reactive to light, extraocular movements intact, sclera anicteric, conjunctiva are normal. ENT: TMs normal, nares patent, oropharynx clear without exudates. Moist mucous membranes. NECK: Normal range of motion, supple without lymphadenopathy or JVD. LUNGS: Breath sounds clear to auscultation bilaterally and equal. No wheezes rales or rhonchi. HEART: Regular rate and rhythm without murmurs, rubs or gallops. ABDOMEN: Soft, nontender, normoactive bowel sounds. No guarding, no rebound. No masses appreciated. BACK: No CVA tenderness, no spinal tenderness, step-offs or deformities EXTREMITIES: Normal range of motion, no pitting or edema. No clubbing or cyanosis. NEUROLOGICAL: Cranial nerves II through XII grossly intact. Normal speech, normal gait. 5/5 strength, normal movement in all extremities, normal sensation PSYCH: Normal mood, normal affect. SKIN: Warm, dry, normal turgor, no visible rashes or lesions. Source: Patient Exam Limitations: No limitations - Personal History LMP (Females 10-55): 1-7 Days Ago Tetanus Vaccine Date: 2011 - Medical/Surgical History Hx Asthma: No Hx Chronic Respiratory Disease: No Hx Diabetes: No Hx Cardiac Disease: No Hx Renal Disease: No Hx Cirrhosis: No Hx Alcoholism: No Hx HIV/AIDS: No Hx Splenectomy or Spleen Trauma: No Other PMH: back pain, migraines, - Family History Significant Family History: No pertinent family hx - Social History Smoking Status: Current every day smoker Alcohol Use: None Drug Use: None Constitutional: Initial Vital Signs Temperature (C) 36.7 C 01/29/17 08:46 Heart Rate 94 01/29/17 08:46 Respiratory Rate 18 01/29/17 08:46 Blood Pressure 115/63 01/29/17 08:46 O2 Sat (%) 97 01/29/17 08:46 O2 Delivery Mode Room Air Allergies/Adverse Reactions: diphenhydramine HCl [From Benadryl] Allergy (Severe, Verified 01/29/17 08:44) Other-Enter Comments Home Medications: Medication Instructions Recorded Promethazine HCl/Codeine 5 ml PO Q4-6PRN PRN #90 ml 01/29/17 [Prometh-Codein 6.25-10 mg/5 ml] Medical Decision Making ED Course/Re-evaluation: Patient's strep and flu swab were negative. I will treat her with a viral syndrome. I will treat her symptomatically for pain cough. She will receive Decadron and ibuprofen here and cough syrup for home. She is happy with this plan and understands indications for returning and follow-up. Differential Diagnosis: Partial list of the Differential diagnosis considered include but were not limited to; viral syndrome, strep throat, influenza and although unlikely based on the history and physical exam, I also considered meningitis, sepsis, bronchitis, pneumonia. I discussed these differential diagnoses and the plan with the patient as well as the usual and expected course. The patient understands that the diagnosis is provisional and that in medicine we are not always correct and that further workup is often warranted. Usual and customary warnings were given. All of the patient's questions were answered. The patient was instructed to return to the emergency department should the symptoms at all worsen or return, otherwise to followup with the physician as we discussed. - Data Points Laboratory Results: 01/29/17 01/29/17 01/29/17 Unknown 08:51 08:51 Influenza A,B Rapid NEGATIVE FOR FLU (NEGATIVE) Group A Strep Screen NEGATIVE (NEGATIVE) Group A Strep DNA Pending Medications Given: Discontinued Medications Dexamethasone (Decadron) 10 mg PO EDNOW ONE Stop: 01/29/17 09:12 Last Admin: 01/29/17 09:13 Dose: 10 mg Ibuprofen (Motrin) 600 mg PO EDNOW ONE Stop: 01/29/17 09:12 Last Admin: 01/29/17 09:14 Dose: 600 mg Departure - Departure Disposition: Home, Routine, Self-Care Clinical Impression: Acute pharyngitis Qualifiers: Pharyngitis/tonsillitis etiology: unspecified etiology Qualified Code(s): J02.9 - Acute pharyngitis, unspecified Condition: Fair Instructions: Pharyngitis (ED) Referrals: NONE *PRIMARY CARE P,. [Primary Care Provider] - As per Instructions Jessika Rojas MD [place] [place] - As per Instructions Prescriptions: Promethazine HCl/Codeine [Prometh-Codein 6.25-10 mg/5 ml] 5 ml PO Q4-6PRN PRN # 90 ml PRN Reason: Cough, Moderate
[2017-01-29] MEDS ORDERED: IBUPROFEN 600 MG TAB PO ONE (09:11)
[2017-01-29] MEDS ORDERED: DEXAMETHASONE 4 MG TAB PO ONE (09:11)
== END 2017-01-29 09:17 | disposition home or self-care (01) ==
LOC: CED 08:32
DX: J02.9 Acute pharyngitis, unspecified (principal); F17.200 Nicotine dependence, unspecified, uncomplicated
CPT/HCPCS: 87400-PO; 87880-PO

== ENCOUNTER 2017-04-22 22:23 | Emergency (ER) | payer MEDICAID ==
--- NOTE | 2017-04-22 22:36 | CPEKG ---
Heart Rate: 96 RR Interval: 625 P-R Interval: 148 QRSD Interval: 80 QT Interval: 340 QTC Interval: 430 P [place]: 66 QRS [place]: 88 T Wave [place]: 26 EKG Severity - NORMAL ECG - EKG Impression: SINUS RHYTHM Electronically Signed By: Jaci Stearns 22-Apr-2017 22:52:20
[2017-04-22 22:40] VITALS: RESP 16
[2017-04-22] MEDS ORDERED: NS 1,000 ML IV ONE (22:42)
[2017-04-22] MEDS ORDERED: DIAZEPAM 10 MG/2 ML SYR IVP ONE (22:43)
--- NOTE | 2017-04-22 22:50 | EDPHY ---
H & P Smoking Status: Current every day smoker Time Seen by Provider: 04/22/17 22:29 HPI/ROS: HPI Lightheaded, nauseous. 31-year-old female by private vehicle. She reports that for the last week she has felt intermittent lightheadedness, nausea and a feeling of being on easy. She reports that last week she was sitting and got up to get a glass of water and felt very lightheaded and almost lost consciousness. She reports that over the last 3 days the symptoms have been worsening and today she has felt nauseous all day, lightheaded, feeling her heart beating fast and she has had a sensation of feeling on easy. She denies any chest pain. She denies any shortness of breath. No fever. Denies any recent illness. No new medications. No change in diet. ROS: Constitutional: No fever, no chills. As above. Eyes: No discharge. No changes in vision. ENT: No sore throat. No nasal congestion or rhinorrhea. Respiratory: No cough. No shortness of breath. Cardiac: No chest pain, as above. Gastrointestinal: No abdominal pain, no vomiting, no diarrhea. Genitourinary: No hematuria. No dysuria or increased frequency with urination. Musculoskeletal: No back pain. No neck pain. No myalgias or arthralgias. Skin: No rashes. Neurological: No headache. No focal weakness or altered sensation. Past medical history: Migraine headaches, chronic back pain. Social history: Smoker. 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 Denies alcohol. She is . Physical Exam: General Appearance: Alert, anxious appearing. This patient is responding to questions appropriately and in full sentences. This patient appears well- hydrated and well-nourished. Eyes: Pupils equal and round no pallor or injection. No lid edema, erythema or injection. Respiratory: There are no retractions, lungs are clear to auscultation with good air movement bilaterally. Cardiovascular: Regular rate and rhythm. Borderline tachycardia. No murmur. Gastrointestinal: Abdomen is soft and nontender, no masses, bowel sounds normal. No focal tenderness at McBurney's point. No Lemon sign. Neurological: Motor sensory function is grossly intact. Cranial nerves are normal. Gait is normal. Skin: Warm and dry, no rashes. Musculoskeletal: Neck is supple and nontender. Extremities are symmetrical. All joints range without pain or impingement. Psychiatric: No agitation. No depression. Database: EKG: EKG time is 10:34 p.m.; EKG shows a narrow complex normal sinus rhythm with a ventricular rate of 96. The [place], QRS, QT intervals are within normal limits. There are no ST-T wave changes indicative of ischemic or injury pattern. No evidence of right heart strain. No evidence of Brugada syndrome, WPW, hypertrophic cardiomyopathy. Interpreted by me. Imaging: Procedures: Emergency department course: Vital signs reviewed. She is afebrile, moderately hypertensive and mildly tachycardic. IV placed. She will receive a L of IV normal saline. Her presentation is consistent with an anxiety reaction. She will be given 5 mg of IV Valium. She consents to blood work to evaluate for anemia, electrolyte abnormality and thyroid function. EKG was obtained and reviewed by myself. Her care was turned over to Dr. Headley just after her workup was initiated at 11: 00 p.m.. Differential Diagnosis: The differential diagnosis on this patient includes but is not limited to anxiety reaction, panic attack. Anemia, hyperthyroid state, toxic metabolic etiology unlikely. This represents a partial list of diagnoses considered. These considerations are based on history, physical exam, past history, reassessment and diagnostic testing. (Jaci Stearns) Constitutional: Initial Vital Signs Temperature (C) 97.9 F 04/22/17 22:25 Heart Rate 112 H 04/22/17 22:25 Respiratory Rate 16 04/22/17 22:25 Blood Pressure 155/92 H 04/22/17 22:25 O2 Sat (%) 97 04/22/17 22:25 O2 Delivery Mode Room Air Allergies/Adverse Reactions: diphenhydramine HCl [From Benadryl] Allergy (Severe, Verified 04/22/17 22:34) Other-Enter Comments BCP Allergy (Uncoded 04/22/17 22:35) Medical Decision Making - Diagnostics EKG Interpretation: I personally reviewed the EKG as well as Dr. Stearns's interpretation. (Ronna Headley) Other Provider: This 31-year-old female presents to emergency department feeling like her heart has been racing, lightheadedness and feeling nauseated over the last few days. She relays to me that she feels like this is her heart. She has had Holter monitors and echocardiograms in the past and they have never been able to find anything except a flow murmur and . The symptoms seem to be more severe at night when she lies down and tries to sleep but she does not feel like her mind is over active. She states the anxiety is "in her heart ". She has not been sick recently, she denies fever, chills, headache, chest pain or shortness of breath. She denies abdominal pain or dysuria. She is on oral contraception and smokes cigarettes. She was counseled that this combination can predispose her to blood clots. She states she will quit one or the other. In the past she has smoked marijuana but she has not smoked any recently and does not feel that is contributing to her symptoms. Her CBC was remarkable for a slightly elevated white blood cell count. This has been elevated on 3 of her last 4 visits as well. She seems to think it is elevated more frequently than not. She has no signs of infection and no dysuria and has declined the urinalysis. Her chemistry panel had a slightly low anion gap but was otherwise unremarkable. Her TSH is normal. She is feeling better after the IV fluids and Valium. She will be given a take-home pack of Valium. I feel she is safe to go home at this time. All her questions were answered. The usual precautions were given. She will establish care with a primary care provider and was given the name of our outpatient medicine call for unassigned patients. (Ronna Headley) - Data Points Laboratory Results: Laboratory Results 04/22/17 22:55 04/22/17 22:55 04/22/17 04/22/17 04/22/17 22:55 22:55 22:55 WBC RBC Hgb Hct MCV MCH MCHC RDW Plt Count MPV Neut % (Auto) Lymph % (Auto) Kimble % (Auto) Eos % (Auto) Baso % (Auto) Nucleat RBC Rel Count Absolute Neuts (auto) Absolute Lymphs (auto) Absolute Monos (auto) Absolute Eos (auto) Absolute Basos (auto) Absolute Nucleated RBC Immature Gran % Immature Gran # Sodium 137 mEq/L mEq/L (135-145) Potassium 3.8 mEq/L mEq/L (3.5-5.2) Chloride 102 mEq/L mEq/L (97-110) Carbon Dioxide 19 mEq/l L mEq/l (22-31) Anion Gap 16 mEq/L mEq/L (8-16) BUN 13 mg/dL mg/dL (7-23) Creatinine 0.8 mg/dL mg/dL (0.6-1.0) Estimated GFR > 60 Glucose 108 mg/dL H mg/dL (70-100) Calcium 9.2 mg/dL mg/dL (8.5-10.4) Magnesium 2.0 mg/dL mg/dL (1.6-2.3) Total Bilirubin 0.4 mg/dL mg/dL (0.1-1.4) Conjugated Bilirubin 0.1 mg/dL mg/dL (0.0-0.5) Unconjugated Bilirubin 0.3 mg/dL mg/dL (0.0-1.1) AST 19 IU/L IU/L (14-46) ALT 39 IU/L IU/L (9-52) Alkaline Phosphatase 48 IU/L IU/L (38-126) Total Protein 6.9 g/dL g/dL (6.3-8.2) Albumin 3.9 g/dL g/dL (3.5-5.0) Lipase 75 IU/L IU/L (23-300) TSH 4.030 uIU/mL uIU/mL (0.465-4.680) Beta HCG, Qual NEGATIVE 04/22/17 22:55 WBC 12.62 10^3/uL H 10^3/uL (3.80-9.50) RBC 4.76 10^6/uL 10^6/uL (4.18-5.33) Hgb 14.2 g/dL g/dL (12.6-16.3) Hct 39.5 % % (38.0-47.0) MCV 83.0 fL fL (81.5-99.8) MCH 29.8 pg pg (27.9-34.1) MCHC 35.9 g/dL g/dL (32.4-36.7) RDW 11.7 % % (11.5-15.2) Plt Count 261 10^3/uL 10^3/uL (150-400) MPV 9.6 fL fL (8.7-11.7) Neut % (Auto) 58.8 % % (39.3-74.2) Lymph % (Auto) 31.5 % % (15.0-45.0) Kimble % (Auto) 7.0 % % (4.5-13.0) Eos % (Auto) 2.3 % % (0.6-7.6) Baso % (Auto) 0.2 % L % (0.3-1.7) Nucleat RBC Rel Count 0.0 % % (0.0-0.2) Absolute Neuts (auto) 7.44 10^3/uL H 10^3/uL (1.70-6.50) Absolute Lymphs (auto) 3.97 10^3/uL H 10^3/uL (1.00-3.00) Absolute Monos (auto) 0.88 10^3/uL H 10^3/uL (0.30-0.80) Absolute Eos (auto) 0.29 10^3/uL 10^3/uL (0.03-0.40) Absolute Basos (auto) 0.02 10^3/uL 10^3/uL (0.02-0.10) Absolute Nucleated RBC 0.00 10^3/uL 10^3/uL (0-0.01) Immature Gran % 0.2 % % (0.0-1.1) Immature Gran # 0.02 10^3/uL 10^3/uL (0.00-0.10) Sodium Potassium Chloride Carbon Dioxide Anion Gap BUN Creatinine Estimated GFR Glucose Calcium Magnesium Total Bilirubin Conjugated Bilirubin Unconjugated Bilirubin AST ALT Alkaline Phosphatase Total Protein Albumin Lipase TSH Beta HCG, Qual Medications Given: Discontinued Medications Diazepam (Valium) 5 mg IVP EDNOW ONE Stop: 04/22/17 22:44 Last Admin: 04/22/17 23:02 Dose: 5 mg Sodium Chloride (Ns) 1,000 mls @ 0 mls/hr IV EDNOW ONE; Wide Open PRN Reason: Protocol Stop: 04/22/17 22:43 Last Admin: 04/22/17 23:01 Dose: 1,000 mls Departure - Departure Disposition: Home, Routine, Self-Care Clinical Impression: Lightheaded, Anxiety, Palpitations Condition: Good Instructions: Diazepam (By mouth), Heart Palpitations (ED), Lightheadedness (ED ), Anxiety (ED) Additional Instructions: Rest. Drink plenty of fluids. Establish and follow up with a primary care provider in the next 1 - 2 weeks. Return to the ED sooner if you have any further problems or concerns as discussed. Referrals: Holly Henson MD [[facility] [place] Primary Care Provider] - As per Instructions
[2017-04-22 23:00] LABS: PLATELET COUNT 261 10^3/uL (150-400)
[2017-04-23 00:02] VITALS: PULSE 84
[2017-04-23] MEDS ORDERED: DIAZEPAM 5 MG PREPACK#4 BTL TAKEHOME ONE (00:08)
[2017-04-23 00:13] VITALS: BP 112/66; TEMP 96.8; O2SAT 96
== END 2017-04-23 00:20 | disposition home or self-care (01) ==
LOC: CED 22:23
DX: R42 Dizziness and giddiness (principal); F41.9 Anxiety disorder, unspecified; F17.200 Nicotine dependence, unspecified, uncomplicated; E86.9 Volume depletion, unspecified
CPT/HCPCS: 80048-PO; 80076-PO; 81003-PO; 83690-PO; 83735-PO; 84443-PO; 84703-PO; 85025-PO; 96374; J3360

== ENCOUNTER 2017-05-10 20:25 | Emergency (ER) | payer MEDICAID ==
[2017-05-10 20:40] VITALS: TEMP 98.1
--- NOTE | 2017-05-10 20:43 | CPEKG ---
Heart Rate: 85 RR Interval: 706 P-R Interval: 172 QRSD Interval: 84 QT Interval: 348 QTC Interval: 414 P Scarsdale: 57 QRS Sc[place]dale: 81 T Wave Sc[place]: 21 EKG Severity - NORMAL ECG - EKG Impression: SINUS RHYTHM Electronically Signed By: Julián Terrazas 10-May-2017 22:37:57
[2017-05-10 20:53] LABS: PLATELET COUNT 229 10^3/uL (150-400)
[2017-05-10] MEDS ORDERED: ACETAMINOPHEN 500 MG TAB PO ONE (21:37)
--- NOTE | 2017-05-10 22:07 | EDPHY ---
H & P Stated Complaint: Pt. states chest tightness intermittent since last noc and sob. Time Seen by Provider: 05/10/17 20:39 HPI/ROS: This patient reports onset of chest tightness and nausea starting last night with a squeezing feeling, anxiety and she felt like her"heart was working harder than it should be while at rest". The symptoms increased a bit since 2: 00 p.m. Today. At 4:00 p.m. She took a [place] anxiety medication that she received from her mother as liquid form 20 drop dose that includes phenobarbital and the Bang in root extract. She does report improvement her symptoms thereafter. She still has a feeling of mild chest pressure and anxiety. She was seen here on April 22 with similar symptoms and had normal EKG at that time, chemistries, negative test, normal electrolytes. She had slight leukocytosis at that time. During that visit she had sinus tachycardia initially. She drove herself by private vehicle here for further evaluation. ROS: Constitutional: No fevers or chills. HEENT: No recent URI symptoms Pulmonary: No pleuritic pain. No coughing. No respiratory distress. No wheezing. Cardiovascular: She reports occasional heart palpitations feels like an extra beat or skipped beats she has had this for quite some time. No recent changes in the frequency. She describes a chest pressure is being vague center chest nonradiating with no clear exacerbating factors. No worsening with exertion. She has had similar pressures in the past. GI: No nausea, no vomiting, no abdominal pain : No complaints integumentary: No skin rash or diaphoresis. Endocrine: No complaints Psychiatric: She admits some anxiety. Neuro: No headache, numbness tingling or focal weakness. Complete review of symptoms is otherwise negative. Source: Patient Exam Limitations: No limitations - Personal History LMP (Females 10-55): 8-14 Days Ago Tetanus Vaccine Date: 2011 - Medical/Surgical History PMH: Normal echocardiogram and Holter monitor in the past for similar symptoms. Hx Asthma: No Hx Chronic Respiratory Disease: No Hx Diabetes: No Hx Cardiac Disease: No Hx Renal Disease: No Hx Cirrhosis: No Hx Alcoholism: No Hx HIV/AIDS: No Hx Splenectomy or Spleen Trauma: No Other PMH: Med hx-back pain, migraines,. Surg-rt achilles - Family History Significant Family History: No pertinent family hx - Social History Smoking Status: Current every day smoker (She smokes half-pack of cigarettes a day on average.) Alcohol Use: Occasionally Drug Use: None, Marijuana (Occasionally in the summertime she will smoke marijuana. 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 She is also mother of a 5-year-old child and works part-time [employer]. - Physical Exam Exam: Vital signs are normal exception of minimally elevated blood pressure 135/85 on arrival. General Appearance: Alert, no distress. Eyes: Pupils equal and round no pallor or injection. ENT, Mouth: Mucous membranes moist. Respiratory: There are no retractions, lungs are clear to auscultation. Cardiovascular: Regular rate and rhythm. Gastrointestinal: Abdomen is soft and nontender, no masses, bowel sounds normal. Neurological: GCS 15 with no focal deficits. Skin: Warm and dry, no rashes. Musculoskeletal: Neck is supple nontender. Extremities are symmetrical, full range of motion. Psychiatric: Mood and affect normal DIFFERENTIAL DIAGNOSIS: After history and physical exam differential diagnosis was considered for anxiety, GERD, pulmonary embolism, pericarditis, musculoskeletal pain Constitutional: Initial Vital Signs Temperature (C) 36.7 C 05/10/17 20:37 Heart Rate 98 05/10/17 20:37 Respiratory Rate 16 05/10/17 20:37 Blood Pressure 135/85 H 05/10/17 20:37 O2 Sat (%) 99 05/10/17 20:37 O2 Delivery Mode Room Air Allergies/Adverse Reactions: diphenhydramine HCl [From Benadryl] Allergy (Severe, Verified 05/10/17 20:36) Other-Enter Comments Home Medications: Medication Instructions Recorded Bcp 05/10/17 Propranolol HCl [Inderal 10mg (*)] 10 - 20 mg PO BID PRN #20 tab 05/10/17 Medical Decision Making ED Course/Re-evaluation: IV, monitor-stable with occasional PAC Tylenol with improvement in symptoms Labs: Normal CBC, basic metabolic panel, normal D-dimer, normal troponin I think this patient's symptoms are attributable primarily to anxiety. I counseled regarding this in some detail. She admits she is likely the consuming excessive caffeine while in school. Protect about diminishing caffeine intake. I also described relaxation techniques Will give her a trial of propranolol for situational anxiety. She will follow up with primary care physician to follow up with Cardiology for any ongoing symptoms. She understands need to return should she develop any significant worsening despite treatment plan. - Data Points Laboratory Results: Laboratory Results 05/10/17 20:35 05/10/17 20:35 05/10/17 05/10/17 05/10/17 20:35 20:35 20:35 WBC RBC Hgb Hct MCV MCH MCHC RDW Plt Count MPV Neut % (Auto) Lymph % (Auto) Tyler % (Auto) Eos % (Auto) Baso % (Auto) Nucleat RBC Rel Count Absolute Neuts (auto) Absolute Lymphs (auto) Absolute Monos (auto) Absolute Eos (auto) Absolute Basos (auto) Absolute Nucleated RBC Immature Gran % Immature Gran # D-Dimer < 0.27 ug/mLFEU ug/mLFEU (0.00-0.50) Sodium 140 mEq/L mEq/L (135-145) Potassium 4.0 mEq/L mEq/L (3.5-5.2) Chloride 103 mEq/L mEq/L (97-110) Carbon Dioxide 22 mEq/l mEq/l (22-31) Anion Gap 15 mEq/L mEq/L (8-16) BUN 14 mg/dL mg/dL (7-23) Creatinine 1.0 mg/dL mg/dL (0.6-1.0) Estimated GFR > 60 Glucose 93 mg/dL mg/dL (70-100) Calcium 8.9 mg/dL mg/dL (8.5-10.4) Troponin I < 0.012 ng/mL ng/mL (0.000-0.034) 05/10/17 20:35 WBC 8.95 10^3/uL 10^3/uL (3.80-9.50) RBC 4.29 10^6/uL 10^6/uL (4.18-5.33) Hgb 13.2 g/dL g/dL (12.6-16.3) Hct 36.9 % L % (38.0-47.0) MCV 86.0 fL fL (81.5-99.8) MCH 30.8 pg pg (27.9-34.1) MCHC 35.8 g/dL g/dL (32.4-36.7) RDW 11.9 % % (11.5-15.2) Plt Count 229 10^3/uL 10^3/uL (150-400) MPV 9.7 fL fL (8.7-11.7) Neut % (Auto) 55.7 % % (39.3-74.2) Lymph % (Auto) 33.3 % % (15.0-45.0) Tyler % (Auto) 8.6 % % (4.5-13.0) Eos % (Auto) 1.9 % % (0.6-7.6) Baso % (Auto) 0.2 % L % (0.3-1.7) Nucleat RBC Rel Count 0.0 % % (0.0-0.2) Absolute Neuts (auto) 4.98 10^3/uL 10^3/uL (1.70-6.50) Absolute Lymphs (auto) 2.98 10^3/uL 10^3/uL (1.00-3.00) Absolute Monos (auto) 0.77 10^3/uL 10^3/uL (0.30-0.80) Absolute Eos (auto) 0.17 10^3/uL 10^3/uL (0.03-0.40) Absolute Basos (auto) 0.02 10^3/uL 10^3/uL (0.02-0.10) Absolute Nucleated RBC 0.00 10^3/uL 10^3/uL (0-0.01) Immature Gran % 0.3 % % (0.0-1.1) Immature Gran # 0.03 10^3/uL 10^3/uL (0.00-0.10) D-Dimer Sodium Potassium Chloride Carbon Dioxide Anion Gap BUN Creatinine Estimated GFR Glucose Calcium Troponin I Medications Given: Discontinued Medications Acetaminophen (Tylenol) 1,000 mg PO EDNOW ONE Stop: 05/10/17 21:38 Last Admin: 05/10/17 21:44 Dose: 1,000 mg Departure - Departure Disposition: Home, Routine, Self-Care Clinical Impression: Chest pressure, Anxiety Condition: Good Instructions: Chest Pain (ED), Anxiety (ED) Additional Instructions: Diagnoses: 1. Chest pressure 2. Anxiety Plan: Regular aerobic exercise for 30 min or more 5 days a week or more Regular relaxation for 30 min more day Avoid excessive caffeine Relaxation techniques as described if you developed acute anxiety Propranolol if needed for anxiety despite above measures. You can take 1 or 2 tabs 2 times a day as needed. Follow-up with primary care physician for any ongoing symptoms Return for any significant worsening despite the treatment plan. Referrals: Holly Henson MD [Primary Care Provider] - As per Instructions Stand Alone Forms: School Excuse Prescriptions: Propranolol HCl [Inderal 10mg (*)] 10 - 20 mg PO BID PRN #20 tab PRN Reason: Anxiety
[2017-05-10 22:27] VITALS: BP 118/74; PULSE 82; RESP 14; O2SAT 95
== END 2017-05-10 22:17 | disposition home or self-care (01) ==
LOC: CED 20:25
DX: R07.89 Other chest pain (principal); F41.9 Anxiety disorder, unspecified; F17.210 Nicotine dependence, cigarettes, uncomplicated
CPT/HCPCS: 80048-PO; 84484-PO; 85025-PO; 85378-PO

== ENCOUNTER 2018-05-21 22:41 | Emergency (ER) | payer MEDICAID ==
[2018-05-21] MEDS ORDERED: NS 1,000 ML IV ONE (22:44)
[2018-05-21] MEDS ORDERED: ONDANSETRON 4 MG/2 ML VIAL IVP ONE (22:44)
--- NOTE | 2018-05-21 23:14 | EDPHY ---
H & P Stated Complaint: N/V/D/TELLES since yesterday. Now with sharp intermittent RLQ abd pain. Time Seen by Provider: 05/21/18 22:53 HPI/ROS: CC: RLQ pain HPI: This 32-year-old [facility] of right lower quadrant pain that started this morning. She states it is sharp and pulsating and rates it at a 5/10. Yesterday she had a headache , nausea, vomiting, and diarrhea. She has not had a fever and there is no blood in her stool or emesis. She has no dysuria. Occasionally she has constipation. She has not taken anything for the pain. Her last menstrual period was one week ago. No ill contacts. REVIEW OF SYSTEMS: Constitutional: No fever, no chills. Eyes: No discharge. ENT: No sore throat. Respiratory: No cough, no shortness of breath. Cardiac: No chest pain, no palpitations. Gastrointestinal: See HPI. Genitourinary: No hematuria. Musculoskeletal: No back pain. Skin: No rashes. Neurological: See HPI. Source: Patient - Personal History LMP (Females 10-55): 1-7 Days Ago Current Tetanus Diphtheria and Acellular Pertussis (TDAP): Yes Tetanus Vaccine Date: 2011 - Medical/Surgical History PMH: PMH: Back pain, ovarian cysts, anxiety, migraines. PSH: Right Achilles tendon repair. FH: Denied. Allergies to Benadryl which causes severe hypertension. Medications include gabapentin for anxiety. Primary care providerP Dr. Leo. Hx Asthma: No Hx Chronic Respiratory Disease: No Hx Diabetes: No Hx Cardiac Disease: No Hx Renal Disease: No Hx Cirrhosis: No Hx Alcoholism: No Hx HIV/AIDS: No Hx Splenectomy or Spleen Trauma: No Other PMH: Med hx-back pain, migraines,. Surg-rt achilles - Social History Smoking Status: Current every day smoker Constitutional: Initial Vital Signs Temperature (C) 97.7 F 05/21/18 22:51 Heart Rate 95 05/21/18 22:51 Respiratory Rate 16 05/21/18 22:51 Blood Pressure 118/76 05/21/18 22:51 O2 Sat (%) 95 05/21/18 22:51 O2 Delivery Mode Room Air Allergies/Adverse Reactions: diphenhydramine HCl [From Benadryl] Allergy (Severe, Verified 05/21/18 22:44) Other-Enter Comments Home Medications: Medication Instructions Recorded Gabapentin 05/21/18 Medical Decision Making - Diagnostics Imaging: Discussed imaging studies w/ order caller Radiologist ED Course/Re-evaluation: The patient was seen and examined. Vital signs reviewed. Prior records reviewed. She was given Toradol for her pain. CT of the abdomen and pelvis with IV contrast was unremarkable. She will follow up with her primary care provider or return to the emergency room if symptoms return, change, or worsen, or any other concerns. - Data Points Laboratory Results: 05/21/18 05/21/18 23:03 23:01 POC Sodium 140 mEq/L mEq/L (135-145) POC Potassium 3.3 mEq/L mEq/L (3.3-5.0) POC Chloride 105.0 mEq/L mEq/L (97-110) POC Total CO2 23 mEq/L mEq/L (22-31) POC BUN 16 mg/dL mg/dL (7-23) POC Creatinine 1.0 mg/dL mg/dL (0.6-1.0) POC Glucose 109 mg/dL H mg/dL (70-100) POC Lactic Acid Adan 0.7 mmol/L mmol/L (0.7-2.1) POC Calcium 9.7 mg/dL mg/dL (8.5-10.4) POC Total Bilirubin 0.9 mg/dL mg/dL (0.1-1.4) POC AST 23 IU/L IU/L (14-46) POC ALT 17 IU/L IU/L (9-52) POC Alk Phosphatase 77 IU/L IU/L (38-126) POC Total Protein 7.7 g/dL g/dL (6.3-8.2) POC Albumin 3.9 g/dL g/dL (3.5-5.0) Medications Given: Discontinued Medications Sodium Chloride (Ns) 1,000 mls @ 0 mls/hr IV ONCE ONE PRN Reason: Wide Open Stop: 05/21/18 22:45 Last Admin: 05/21/18 22:53 Dose: 1,000 mls Ketorolac Tromethamine (Toradol) 15 mg IVP EDNOW ONE Stop: 05/21/18 23:27 Last Admin: 05/21/18 23:31 Dose: 15 mg Ondansetron HCl (Zofran) 4 mg IVP EDNOW ONE Stop: 05/21/18 22:45 Last Admin: 05/21/18 22:53 Dose: 4 mg Point of Care Test Results: CBC CBC Collection Date 05/21/18 CBC Collection Time 22:56 WBC 10.19 RBC 4.89 HGB 14.7 HCT 41.4 PLT 278 Neut # 6.05 Neut 59.3 LYMPH # 3.19 LYMPH 31.3 MCV 84.7 Chemistry 05/21/18 23:01 POC Sodium 140 mEq/L mEq/L (135-145) POC Potassium 3.3 mEq/L mEq/L (3.3-5.0) POC Chloride 105.0 mEq/L mEq/L (97-110) POC Total CO2 23 mEq/L mEq/L (22-31) POC BUN 16 mg/dL mg/dL (7-23) POC Creatinine 1.0 mg/dL mg/dL (0.6-1.0) POC Glucose 109 mg/dL H mg/dL (70-100) POC Calcium 9.7 mg/dL mg/dL (8.5-10.4) POC Total Bilirubin 0.9 mg/dL mg/dL (0.1-1.4) POC AST 23 IU/L IU/L (14-46) POC ALT 17 IU/L IU/L (9-52) POC Alk Phosphatase 77 IU/L IU/L (38-126) POC Total Protein 7.7 g/dL g/dL (6.3-8.2) POC Albumin 3.9 g/dL g/dL (3.5-5.0) Blood Gas/Lactic Acid-Venous 05/21/18 23:03 POC Lactic Acid Adan 0.7 mmol/L mmol/L (0.7-2.1) Urine Collection Date 05/21/18 Collection Time 22:45 HCG Results Negative Urine Dip Collection Date 05/21/18 Collection Time 22:45 Specific Dawson (1.002-1.030) 1.030 PH (5.0-7.5) 6.0 Leukocytes (Negative) Negative Nitrites (Negative) Negative Protein (Negative) Negative Glucose (Negative) Negative Ketones (Negative) Negative Urobilnogen (0.2-1.0 EU) 0.2 Bilirubin (Negative) Negative Blood (Negative) Trace Departure - Departure Disposition: Home, Routine, Self-Care Clinical Impression: Abdominal pain, right lower quadrant Condition: Good Instructions: Acute Abdominal Pain (ED) Additional Instructions: Follow up with your primary care provider this week. Return to the ER if symptoms change or worsen. Referrals: Sebastien Leo [Non Staff Provider (MD)] - As per Instructions
[2018-05-21] MEDS ORDERED: KETOROLAC 15 MG/1 ML SDV IVP ONE (23:26)
[2018-05-21] MEDS ORDERED: IOPAMIDOL (ISOVUE-300) 100 ML BTL ONE (23:43)
[2018-05-22 00:42] VITALS: BP 109/72
== END 2018-05-22 00:42 | disposition home or self-care (01) ==
LOC: CED 22:41
DX: R10.31 Right lower quadrant pain (principal); F17.200 Nicotine dependence, unspecified, uncomplicated
CPT/HCPCS: 74177-PO; 80053-ER; 83605-ER; 96361-ER; 96374-ER; 96375-ER; J1885; J2405; Q9967